=== PATIENT | female | born 1950 | race Caucasian/White ===

== ENCOUNTER 2019-03-20 17:55 | Observation (INO) | payer MEDICARE ==
[2019-03-20] MEDS ORDERED: diphenhydrAMINE 50 MG/ML VIAL ONE (19:28)
[2019-03-20] MEDS ORDERED: Metoclopramide HCl 10 MG/2 ML VIAL ONE (19:28)
[2019-03-20] MEDS ORDERED: methylPREDNISolone Sod Succ/PF 125 MG/2 ML VIAL ONE (19:28)
[2019-03-20] MEDS ORDERED: Ondansetron PF 4 MG/2 ML Vial IVP PRN (21:24)
[2019-03-20 21:36] VITALS: BMI 24.7
--- NOTE | 2019-03-20 22:36 | PDOC.FM ---
- Objective Vital Signs & Weight: Vital Signs (12 hours) Temp Pulse Resp BP Pulse Ox 03/20/19 20:36 98.3 F 80 20 188/84 H 99 Weight Weight 71.804 kg Addendum - Attending - Attending Attestation Date/Time: 03/20/19 7433 I personally evaluated the patient and discussed the management with Dr. Edwards and Dr Herrera. Written H&P is pending. I agree with the History, Examination, Assessment and Plan documented as discussed with any addition or exceptions noted below.
[2019-03-20] MEDS: Sodium Chloride 0.9% 1,000 ML IV SCH (22:41)
[2019-03-20] MEDS: Famotidine 20 MG TAB PO SCH (22:42)
--- NOTE | 2019-03-20 22:49 | PDOC.FPRHP ---
- History of Present Illness Chief Complaint: vertigo History of Present Illness: Patient is a 68F with PMHx asthma, hypothyroidism, HTN, and arachnoiditis on stroke obs for r/o posterior CVA. Patient reports that Wednesday morning she began having vertigo and a posterior headache. She reports that the vertigo is worse when she is walking or riding in a vehicle. She states that she is sensitive to both light and sounds and has felt unsteady on her feet. She reports having diarrhea this morning, and when she was sitting on the toilet she had an episode of syncope witnessed by her cousin. Cousin reports she lost consciousness for approx 2 minutes. She reports that she is followed by Dr. Jace Zamudio Jr at the [facility] for arachnoiditis. ED Course: [facility] ED: ASA, nitro, lopressor, CT head: no evidence of intracranial bleeding or mass effect, EKG wnl, WBC 15.5 [facility] ED: Benadryl, methylprednisone, metoclopramide - Allergies/Adverse Reactions Allergies Allergy/AdvReac Type Severity Reaction Status Date / Time acetaminophen [From Lortab] Allergy Verified 03/20/19 21:29 ciprofloxacin Allergy Verified 03/20/19 21:29 gabapentin [From Neurontin] Allergy Verified 03/20/19 21:29 hydrocodone Allergy Verified 03/20/19 21:29 morphine Allergy Verified 03/20/19 21:29 - Home Medications Medication Instructions Recorded Confirmed Type Albuterol Sulfate [Proair HFA] 2 puff INH Q4HR PRN 03/20/19 03/20/19 History Meclizine HCl 1 tab PO Q8HR 03/20/19 03/20/19 History Meloxicam [Mobic] 7.5 mg PO BID 03/20/19 03/20/19 History Ondansetron [Zofran ODT] 1 tab SL Q4HR PRN 03/20/19 03/20/19 History Verapamil ER [Calan ER] 1 tab PO BID 03/20/19 03/20/19 History predniSONE 1 tab PO BID PRN 03/20/19 03/20/19 History traMADol HCl [Tramadol HCl] 1 tab PO Q4HR PRN 03/20/19 03/20/19 History - History PMHx:see hpi PSHx: multiple neck and back sx, appendectomy, hysterectomy, cholecystectomy FHx: non-contributory Social: no drinking, smoking, drug use - Review of Systems General: denies: fever/chills, weight/appetite/sleep changes Eyes: denies: eye pain ENT: denies: nasal congestion, rhinorrhea Respiratory: denies: congestion, shortness of breath Cardiovascular: denies: chest pain, edema Gastrointestinal: reports: diarrhea. denies: abdominal pain Genitourinary: denies: incontinence, dysuria Skin: denies: rashes, jaundice Neurological: reports: syncope, other (posterior headache, photophobia, phonophobia). denies: numbness, seizure, weakness - Vital signs BP: [149/89] HR: [79] RR: [13] Tmax: [98.9] Pox: [98]% on [RA] Wt: [71.8kg] - Physical Exam Constitutional: other (curled up on the bed in the dark complaining of headache) HEENT: EOMI Neck: supple, trachea midline Chest: no-tender to palpation, no lesions Heart: RRR, normal S1/S2 Lungs: no respiratory distress, good air movement Abdomen: soft, non-tender Musculoskeletal: normal structure, normal tone Neurological: CN II-XII intact, normal sensation, other (horizontal right- beating nystagmus) Skin: good turgor, no jaundice Heme/Lymphatic: no purpura, no petechia Psychiatric: intact recent and remote memory, other (in obvious pain) FMR H&P: Results - Labs Result Diagrams: 03/21/19 04:24 03/21/19 04:24 FMR H&P: A/P - Problem List (1) Vertigo Current Visit: Yes Status: Acute Code(s): R42 - DIZZINESS AND GIDDINESS (2) Headache Current Visit: Yes Status: Acute Code(s): R51 - HEADACHE (3) Hypothyroid Current Visit: Yes Status: Acute Code(s): E03.9 - HYPOTHYROIDISM, UNSPECIFIED (4) Asthma Current Visit: Yes Status: Acute Code(s): J45.909 - UNSPECIFIED ASTHMA, UNCOMPLICATED (5) HTN (hypertension) Current Visit: Yes Status: Acute Code(s): I10 - ESSENTIAL (PRIMARY) HYPERTENSION - Plan 68F with PMHx of asthma, hypothyroidism, HTN, arachnoiditis on stroke obs for CVA r/o #Vertigo & Headache likely 2/2 migraine -patient has phonophobia and photophobia -posterior headache for three days -received benadryl, methylprednisone, metoclopramide in ED -MRI brain w wo contrast ordered to r/o posterior CVA -metoclopramide and benadryl for headache management -will consider triptan for migraine if CVA r/o and HTN controlled #Hypothyroidism -continue home meds #HTN -allowing for permissive HTN until CVA r/o -labetalol for SBP >180 #Asthma -continue home meds #Arachnoiditis -continue home meds DVT proph: lovenox GI proph: pepcid Code Status: full code Dispo: stroke obs for CVA r/o FMR H&P: Upper Level - Plan Date/Time: 03/20/19 4572 I, Christo Herrera MD, have evaluated this patient and agree with findings/plan as outlined by project intern resident. Pertinent changes/additions are listed here. Ambreen Ring is a 68 year old F with a PMH of Asthma, Hypothyroidism, HTN who was transferred from [place] ER with c/o of headache, dizziness and n/v over the last 3 days [employer]. Patient states that headache is located at the back of her head, described as dull, rated as 10/10, constant, worsened by movement. Dizziness described as room is spinning. Pt was diagnosed earlier in the year with arachnoiditis. States that she has never had headaches or dizziness like this and denies any history of migraines. At [place] [facility], she had a WBC count of 15.[address] that showed no evidence of intracranial bleeding or mass effect. On exam, patient had nystagmus with right gaze, no vertical nystagmus. Cerebellar tests were normal including finger to nose, rapid alternating movements, rebound phenomenon, and heel to schumacher. Patient is being placed on stroke unit for observation. Brain MRI ordered and will symptomatically treat headache and vertigo. Patient states she has already had improvement in both with treatment from ED, including 1 L NS, benadryl, methylprednisolone, and metoclopramide. Will continue to monitor patient's neurologic status. Please see project intern note above for full H&P, which I have reviewed and agree with unless otherwise stated. Addendum - Attending - Attending Attestation Date/Time: 03/21/19 4249 I personally evaluated the patient and discussed the management with Dr. Herrera and Jerry at time of admission last night. I agree with the History, Examination, Assessment and Plan documented above with any addition or exceptions noted below. Ambreen has vertigo with right gaze nystagmus but no sensory or motor deficits. Cerebellar tests are intact bilaterally. The clinical picture could be best explained by a complex migraine, but she does not have a migraine/Fong history so it concerning for a 68yo to have a new FONG. MRI planned.
[2019-03-20] MEDS ORDERED: Metoclopramide HCl 10 MG/2 ML VIAL IVP SCH (23:00)
[2019-03-20] MEDS ORDERED: diphenhydrAMINE 25 MG in Sodium Chloride 0.9% 50 ML IVPB SCH (23:30)
[2019-03-21] MEDS ORDERED: Lorazepam 1 MG TAB PO PRN (03:18)
[2019-03-21] MEDS ORDERED: PROVENTIL INHALER 6.7 G (200 INHALATIONS) INH PRN (04:34)
[2019-03-21 04:45] LABS: #Lymphocytes 1.1 thou/uL (1.20-3.40); #Neutrophils 9.2 thou/uL (1.40-6.50); %Basophils 0.1 % (0.0-1.0); %Eosinophils 0.2 % (0.0-10.0); %Lymphocytes 10.7 % (21.0-51.0); %Monocytes 0.4 % (0.0-10.0); %Neutrophils 88.7 % (42.0-75.0); Hemoglobin 16.1 g/dL (12.0-16.0); Mean Corpuscular HGB CONC 34.3 g/dL (32.0-36.0); Mean Corpuscular Hemoglobin 30.4 pg (27.0-31.0); Mean Corpuscular Volume 88.8 fL (78.0-98.0); Mean Platelet Volume 8.4 fL (7.4-10.4); Platelet Count 248 thou/uL (130-400); Red Blood Cell (RBC) Count 5.29 mill/uL (4.20-5.40); White Blood Cell (WBC) Count 10.4 thou/uL (4.8-10.8)
[2019-03-21] MEDS ORDERED: predniSONE 5 MG TAB PO PRN (04:45)
[2019-03-21 05:03] LABS: Anion Gap 17 mmol/L (10-20); BUN (Urea Nitrogen) 17 mg/dL (9.8-20.1); Calc. Creatinine Clearance 86 mL/min (70-130); Calcium 9.3 mg/dL (7.8-10.44); Carbon Dioxide 17 mmol/L (23-31); Chloride 105 mmol/L (98-107); Estimated GFR-MDRD 83; Glucose 141 mg/dL (80-115); Potassium 3.4 mmol/L (3.5-5.1); Sodium 136 mmol/L (136-145)
[2019-03-21] MEDS: Acetaminophen 325 MG TAB PO PRN ×2 (05:58→20:46)
--- NOTE | 2019-03-21 08:05 | PDOC.FM ---
- Subjective Subjective: Patient reports her headache improved overnight, and has now returned. Describes a "splitting headache," and states "My head feels like its going to explode." States the lights and sound bother her, feels nauseated and that the room is spinning. Complains of substernal chest pressure that started when I came to see her this AM, while laying in bed. - Objective Vital Signs & Weight: Vital Signs (12 hours) Temp Pulse Resp BP Pulse Ox 03/21/19 04:00 98 F 107 H 18 147/72 H 95 03/21/19 00:00 98.1 F 97 16 190/87 H 94 L 03/20/19 20:36 98.3 F 80 20 188/84 H 99 Weight Weight 71.804 kg I&O: 03/20/19 03/21/19 03/22/19 06:59 06:59 06:59 Intake Total 2 Balance 2 Result Diagrams: 03/21/19 04:24 03/21/19 04:24 Phys Exam - Physical Examination Moaning, appears to be in pain HEENT: PERRLA, sclera anicteric Respiratory: no wheezing, clear to auscultation bilateral Cardiovascular: RRR, no significant murmur Gastrointestinal: soft, non-tender, positive bowel sounds Musculoskeletal: no edema, pulses present Neurological: non-focal, moves all 4 limbs Skin: normal turgor, cap refill <2 seconds Dx/Plan (1) Asthma Code(s): J45.909 - UNSPECIFIED ASTHMA, UNCOMPLICATED Status: Chronic (2) HTN (hypertension) Code(s): I10 - ESSENTIAL (PRIMARY) HYPERTENSION Status: Chronic (3) Headache Code(s): R51 - HEADACHE Status: Acute (4) Hypothyroid Code(s): E03.9 - HYPOTHYROIDISM, UNSPECIFIED Status: Chronic (5) Vertigo Code(s): R42 - DIZZINESS AND GIDDINESS Status: Acute - Plan Plan: 68F with PMHx of asthma, hypothyroidism, HTN, admitted for CVA r/o #Vertigo & Headache likely 2/2 migraine, concern for CVA -posterior headache for three days, with phonophobia and photophobia and nausea/ vomiting -CT head negative in [place] -received benadryl, methylprednisone, metoclopramide in ED -MRI brain w wo contrast ordered to r/o posterior CVA -metoclopramide and benadryl for headache management -Consider LP today to rule out IVH #Hypothyroidism -continue home meds #HTN -allowing for permissive HTN until CVA r/o -labetalol for SBP >220/120 #Asthma -continue home meds #Arachnoiditis -aware #Atypical chest pain -substernal chest pressure -May be 2/2 anxiety/headache -EKG, trop and CKMB this AM DVT proph: held for now GI proph: pepcid Code Status: full code Dispo: stroke obs for CVA r/o Addendum - Attending - Attending Attestation Date/Time: 03/21/19 1138 I personally evaluated the patient and discussed the management with Dr. Noble. I agree with the History, Examination, Assessment and Plan documented above with any addition or exceptions noted below. Pt notes headache is a little better this am. MRI of brain is negative for stroke, mass, hemorrhage, etc. Will have PT eval pt with her dizziness. Will try addition meds on headache protocol to control headache. Trop indeterminate , will trend.
[2019-03-21] MEDS ORDERED: Labetalol HCl 100 MG/20 ML VIAL SLOW IVP PRN (08:22)
[2019-03-21] MEDS ORDERED: Enoxaparin Sodium 40 MG/0.4 ML SYRINGE SC SCH (09:00)
[2019-03-21] MEDS ORDERED: Meloxicam 7.5 MG TAB PO SCH (09:00)
[2019-03-21 09:33] LABS: Cardiac Risk 2.9 (Less than 4.5)
[2019-03-21 09:38] LABS: CKMB 1.7 ng/mL (0-6.6); Troponin I 0.043 ng/mL (< 0.028)
--- NOTE | 2019-03-21 10:11 | MRI ---
MRI BRAIN WITH AND WITHOUT IV CONTRAST: HISTORY: Posterior CVA COMPARISON: None CORRELATION:03/20/2019 FINDINGS: No restricted diffusion is seen. No evidence of infarct, hemorrhage, mass, midline shift or abnormal extra-axial fluid collections is noted. No abnormal postcontrast enhancement is seen. The ventricular size is appropriate and the basilar cisterns are patent. There is mucosal disease in the paranasal sinuses. IMPRESSION: No evidence of acute intracranial process or mass.
[2019-03-21] MEDS: Famotidine 20 MG TAB PO SCH ×2 (11:12→20:46)
[2019-03-21 13:37] LABS: Troponin I 0.103 ng/mL (< 0.028)
--- NOTE | 2019-03-21 14:10 | CT ---
EXAM: CT angiogram great vessels neck with IV contrast and three-dimensional reconstructions CT angiogram brain with IV contrast and three-dimensional reconstructions CT brain without contrast PROVIDED CLINICAL HISTORY: TIA COMPARISON: CT brain 03/20/2019 FINDINGS: The ventricular system remains normal in size and morphology. There is no evidence for intracranial h emorrhage or mass effect. The extracranial soft tissues and osseous structures demonstrate an unremarkable CT appearance. There is a normal three-vessel configuration of the great vessels at the arch. The common carotid, internal carotid, clavian and vertebral arteries demonstrate no evidence for sign ificant stenosis. There is no evidence for focal vessel stenosis, branch occlusion or aneurysm involving the intracrani al circulation. IMPRESSION: 1. No evidence for intracranial hemorrhage or mass effect. 2. No significant stenosis involving the great vessels of the neck. 3. No evidence for focal vessel stenosis, branch occlusion or aneurysm involving the intracranial cir culation.
[2019-03-21] MEDS ORDERED: Iopamidol 370 76% 100 ML VIAL ONE (15:11)
--- NOTE | 2019-03-21 15:14 | PDOC.EVN ---
Event Note - Event Note Event Note: Went to check on Patient. Patient reports her headache and chest pain are resolved. Reviewed EKG. Sinus tach with nonspecific ST abnormality. Will trend one more troponin, as they have been uptrending. Cdif negative.
[2019-03-21 15:36] LABS: Troponin I 0.094 ng/mL (< 0.028)
[2019-03-21] MEDS ORDERED: traMADol HCl 50 MG TAB PO PRN (16:53)
[2019-03-21] MEDS: Sodium Chloride 0.9% 1,000 ML IV SCH ×2 (19:45→20:05)
[2019-03-21] MEDS: Meclizine HCl 25 MG TAB PO SCH (20:46)
--- NOTE | 2019-03-21 23:00 | EKG ---
Test Reason : Blood Pressure : / mmHG Vent. Rate : 106 BPM Atrial Rate : 106 BPM P-R Int : 148 ms QRS Dur : 082 ms QT Int : 340 ms P-R-T Axes : 070 -02 075 degrees QTc Int : 451 ms Sinus tachycardia Right atrial enlargement Nonspecific ST abnormality Abnormal ECG When compared with ECG of 20-MAR-2019 18:13, (Unconfirmed) Nonspecific T wave abnormality no longer evident in Anterior leads Confirmed by Chung MCKENZIE ([id number]) on 03/21/2019 11:00:01 PM Referred By: Gloria NUNEZ *R Confirmed By:Chung MCKENZIE
[2019-03-22] MEDS: Levothyroxine Sodium 125 MCG TAB PO SCH ×2 (07:20→08:28)
[2019-03-22] MEDS: Meclizine HCl 25 MG TAB PO SCH ×3 (07:20→14:01)
[2019-03-22] MEDS: Famotidine 20 MG TAB PO SCH (08:30)
--- NOTE | 2019-03-22 08:35 | PDOC.FM ---
- Subjective Subjective: Patient reports she feels well this AM. NAEO. - Objective Vital Signs & Weight: Vital Signs (12 hours) Temp Pulse Resp BP Pulse Ox 03/22/19 08:00 98.3 F 71 16 170/76 H 96 03/22/19 04:00 98.4 F 74 19 177/81 H 95 03/22/19 00:00 98.7 F 78 18 156/69 H 95 Weight Weight 71.804 kg I&O: 03/21/19 03/22/19 03/23/19 06:59 06:59 06:59 Intake Total 2 940 Output Total 2 Balance 2 938 Result Diagrams: 03/21/19 04:24 03/21/19 04:24 Phys Exam - Physical Examination Constitutional: NAD Respiratory: no wheezing, clear to auscultation bilateral Cardiovascular: RRR, no significant murmur Gastrointestinal: soft, positive bowel sounds Musculoskeletal: no edema, pulses present Psychiatric: normal affect Skin: no rash, normal turgor Dx/Plan (1) Asthma Code(s): J45.909 - UNSPECIFIED ASTHMA, UNCOMPLICATED Status: Chronic (2) HTN (hypertension) Code(s): I10 - ESSENTIAL (PRIMARY) HYPERTENSION Status: Chronic (3) Headache Code(s): R51 - HEADACHE Status: Acute (4) Hypothyroid Code(s): E03.9 - HYPOTHYROIDISM, UNSPECIFIED Status: Chronic (5) Vertigo Code(s): R42 - DIZZINESS AND GIDDINESS Status: Acute (6) Atypical chest pain Code(s): R07.89 - OTHER CHEST PAIN Status: Acute - Plan Plan: 68F with PMHx of asthma, hypothyroidism, HTN, admitted for CVA r/o #Atypical chest pain -substernal chest pressure -May be 2/2 anxiety/headache -EKG showed slight ST depression in lateral leads -Trop: 0.043 -> 0.103 -> 0.90. Chest pain resolved -Heart score 5 -Stress this AM #R/O CVA -Stroke ruled out. Likely severe migraine vs TIA as symptoms have improved -posterior headache for three days, with phonophobia and photophobia and nausea/ vomiting -CT head negative in [place] -received benadryl, methylprednisone, metoclopramide in ED -MRI brain w wo contrast negative -CTA head/neck negative -discharge to home today if normal stress test #Benign paroxysmal positional vertigo -Lulu Hallpike maneuver 03/21 elicits nystagmus bilaterally -vertigo worsens with movement #Hypothyroidism -continue home meds #HTN -resume home medications #Asthma -continue home meds #Arachnoiditis -resume home medications DVT proph: lovenox GI proph: pepcid Code Status: full code Dispo: likely home today if normal stress test Addendum - Attending - Attending Attestation Date/Time: 03/22/19 1031 I personally evaluated the patient and discussed the management with Dr. Noble. I agree with the History, Examination, Assessment and Plan documented above with any addition or exceptions noted below. The patient is very anxious this morning. She is only saying "leave me alone, I don't want to be here." She had elevated cardiac enzymes yesterday with chest pain. Chest pain resolved. Will get stress test today if patient agrees to the test. She has been given a dose of hydroxyzine this morning for the anxiety. Will reassess about 30 minutes after the medication.
[2019-03-22] MEDS ORDERED: Enoxaparin Sodium 40 MG/0.4 ML SYRINGE SC SCH (09:00)
[2019-03-22] MEDS: Sodium Chloride 0.9% 1,000 ML IV SCH (09:01)
[2019-03-22] MEDS ORDERED: hydrOXYzine 25 MG TAB PO SCH (10:00)
[2019-03-22] MEDS ORDERED: hydrALAZINE 10 MG TAB PO SCH (10:00)
[2019-03-22] MEDS ORDERED: Regadenoson 0.4 MG/5 ML SYRINGE ONE (13:55)
[2019-03-22 15:48] VITALS: BP 178/79; TEMP 98.7
--- NOTE | 2019-03-22 16:08 | NM ---
CARDIAC SPECT: 03/22/19 HISTORY: 68-year-old female with elevated troponin, hypertension, stroke, asthma. TECHNIQUE: A myocardial perfusion scan is performed using the single isotope one day protocol of technetium 99m- Sestamibi. 11 millicuries injected intravenously for rest followed by 31 millicuries for the stress s tudy. Pharmacologic test with Lexiscan was monitored and interpreted by TERRA Renee. FINDINGS: Homogeneous tracer distribution seen in the myocardial segments on stress and rest images Without fix ed or reversible defects. Gated SPECT LVEF: 73%. Wall motion exam: Normal. IMPRESSION: Normal myocardial perfusion scan. POS: TPC
--- NOTE | 2019-03-23 13:10 | CT ---
"PRELIMINARY REPORT" EXAM: CT angiogram great vessels neck with IV contrast and three-dimensional reconstructions CT angiogram brain with IV contrast and three-dimensional reconstructions CT brain without contrast PROVIDED CLINICAL HISTORY: TIA COMPARISON: CT brain 03/20/2019 FINDINGS: The ventricular system remains normal in size and morphology. There is no evidence for intracranial h emorrhage or mass effect. The extracranial soft tissues and osseous structures demonstrate an unremarkable CT appearance. There is a normal three-vessel configuration of the great vessels at the arch. The common carotid, internal carotid, clavian and vertebral arteries demonstrate no evidence for sign ificant stenosis. There is no evidence for focal vessel stenosis, branch occlusion or aneurysm involving the intracrani al circulation. IMPRESSION: 1. No evidence for intracranial hemorrhage or mass effect. 2. No significant stenosis involving the great vessels of the neck. 3. No evidence for focal vessel stenosis, branch occlusion or aneurysm involving the intracranial cir culation. Transcribed Date/Time: 03/23/2019 1:10 PM
--- NOTE | 2019-03-23 13:59 | DIS ---
DATE OF ADMISSION: 03/20/2019 DATE OF DISCHARGE: 03/22/2019 RESIDENT: María Noble MD ADMITTING ATTENDING: Jesús Lama MD DISCHARGE ATTENDING: Johanne Garcia MD CONSULTS: None. PROCEDURES PERFORMED: 1. Brain MRI, 03/21/2019. Impression, no evidence of acute intracranial process or mass. 2. CT angiography head and neck, 03/21/2019. No evidence for intracranial hemorrhage or mass effect. No significant stenosis involving great vessel of the neck. No evidence for focal vessel stenosis, branch occlusion, or aneurysm involving the intracranial circulation. 3. Stress test nuclear medicine, 03/22/2019. LVEF 72%. Normal wall motion. Impression, normal myocardial perfusion scan. PRIMARY DIAGNOSES: 1. Complex migraine, ruled out cerebrovascular accident. 2. Atypical chest pain. 3. Benign paroxysmal positional vertigo. SECONDARY DIAGNOSES: 1. Hypothyroidism. 2. Hypertension. 3. Asthma. 4. Arachnoiditis. DISCHARGE MEDICATIONS: 1. Prednisone 10 mg p.o. b.i.d. 2. Meclizine 1 tablet p.o. q.8 hours. 3. Albuterol sulfate two puffs q.4 hours p.r.n. for wheezing. 4. Tramadol 1 tablet p.o. b.i.d. 5. Zofran 1 tab sublingual q.4 hours p.r.n. for nausea. 6. Mobic 7.5 mg p.o. b.i.d. 7. Verapamil 180 mg tabs, two tabs p.o. daily. 8. Levothyroxine 100 mcg p.o. daily. 9. Flexeril 10 mg p.o. b.i.d. as needed for muscle pain. 10. Singulair 10 mg p.o. daily. DISCONTINUED MEDICATIONS: None. HISTORY OF PRESENT ILLNESS/HOSPITAL COURSE: A 68-year-old female with past medical history of asthma, hypothyroidism, hypertension, and reported arachnoiditis. Reports that she had began having vertigo and posterior headache two days prior to admission. She reported the vertigo was worse when she was riding in a vehicle. She reported sensitivity to light and sound, and has felt unsteady on her feet. She also reported having diarrhea and an episode of syncope that was witnessed by her cousin while in the toilet. She reports that she sees Dr. Jace Zamudio at the [place]. In [place], the patient was given aspirin, nitroglycerin, Lopressor. A CT of the head showed no evidence of intracranial bleeding or mass effect. EKG was within normal limits when she had elevated white count at 15.5. In the [place] ER, she was given Benadryl, methylprednisolone, and metoclopramide. The patient received CT head and MRI of brain with and without contrast, as well as CTA angio of head and neck that was negative for stroke. Her symptoms improved overnight and then worsened somewhat the next morning and she began complaining of substernal chest pressure. Troponins were trended which increased slightly in the indeterminate range and then downtrended. Values were 0.043 to 0.103 to 0.094. Repeat EKG showed some possible slight ST depression in the lateral leads. Her chest pain resolved as well as the headache. She had a HEART score of 5; the next morning she underwent a nuclear medicine stress test that was normal. Yasmine-Hallpike maneuver was done, which elicited nystagmus bilaterally. The patient reported that her vertigo worsens with movement. She was diagnosed with BPPV. The patient was discharged with meclizine. For hypothyroidism, hypertension, asthma and arachnoiditis, the patient was encouraged to continue her home medications. DISPOSITION: Stable. DISCHARGE INSTRUCTIONS: 1. Location: Home. 2. Diet: Heart healthy. 3. Activity: As tolerated. 4. Follow up with PCP within 1 week. Job ID: [id number] MTDD
--- NOTE | 2019-03-25 12:47 | EKG ---
Test Reason : R/O CVA Blood Pressure : / mmHG Vent. Rate : 074 BPM Atrial Rate : 074 BPM P-R Int : 158 ms QRS Dur : 086 ms QT Int : 376 ms P-R-T Axes : 063 018 075 degrees QTc Int : 417 ms Normal sinus rhythm Possible Left atrial enlargement Borderline ECG Confirmed by PALMA REDDING, BHUPENDRA ([id number]), slot editor TRISTIAN CARLSON ([id number]) on 03/25/2019 12:46:10 PM Referred By: Confirmed By:BHUPENDRA WALDROP MD
== END 2019-03-22 17:35 | disposition home or self-care (01) ==
LOC: ERS 17:55 → 2SE 21:00
PROVIDERS: ADMIT Family Medicine; ATTEND Family Medicine
DX: G43.809 Other migraine, not intractable, without status migrainosus (principal); R07.2 Precordial pain; H81.10 Benign paroxysmal vertigo, unspecified ear; J45.909 Unspecified asthma, uncomplicated; G03.9 Meningitis, unspecified; E03.9 Hypothyroidism, unspecified; I10 Essential (primary) hypertension; R00.0 Tachycardia, unspecified; Z88.1 Allergy status to other antibiotic agents; Z88.5 Allergy status to narcotic agent; Z88.8 Allergy status to other drugs, medicaments and biological substances; Z79.899 Other long term (current) drug therapy
CPT/HCPCS: 70496; 70498; 70553; 78452; 80048; 80061; 82553; 84443; 84484 ×2; 85025; 87324; 87449; 87493; 93005 ×2; 93017; 96361 ×2; 96365; 96366; 96372; 96375; 96376; 97116; 97139 ×5; 99285; A9500; G0378 ×5; 36415; 93010; J1200; J1650; J2765; J2785; J2930; J8597

== ENCOUNTER 2020-11-28 09:17 | Inpatient (IN) | payer MEDICARE ==
[2020-11-28] MEDS ORDERED: Aspirin Chewable 81 MG TAB ONE (11:34)
[2020-11-28] MEDS ORDERED: Senokot S 8.6-50 MG TAB PO PRN (12:37)
[2020-11-28] MEDS ORDERED: HumaLOG 300 UNITS/3 ML VIAL SC PRN (12:37)
[2020-11-28] MEDS ORDERED: Dextrose 50% Abboject 50 ML SYRINGE SLOW IVP PRN (12:37)
[2020-11-28] MEDS ORDERED: Bisacodyl 10 MG SUPP PR PRN (12:37)
[2020-11-28] MEDS ORDERED: Guaifenesin DM 100-10/5 ML UDCUP PO PRN (12:37)
[2020-11-28] MEDS ORDERED: Cyclobenzaprine 10 MG TAB PO PRN (12:37)
[2020-11-28] MEDS ORDERED: Insulin Regular 300 UNITS/3 ML VIAL SC PRN (12:37)
[2020-11-28] MEDS ORDERED: Calcium Carbonate 500 MG ChewTAB PO PRN (12:37)
[2020-11-28] MEDS ORDERED: Dextrose 5% in Water 1,000 ML IV PRN (12:37)
[2020-11-28] MEDS ORDERED: predniSONE 20 MG TAB PO SCH (12:45)
[2020-11-28] MEDS ORDERED: Sodium Chloride 0.9% 1,000 ML IV SCH (12:45)
[2020-11-28] MEDS: traMADol HCl 50 MG TAB PO PRN (18:47)
[2020-11-28] MEDS: Ondansetron PF 4 MG/2 ML Vial IVP PRN (18:48)
[2020-11-28 19:07] VITALS: BMI 28.7
[2020-11-28] MEDS: Montelukast Sodium 10 mg Tablet PO SCH (21:54)
[2020-11-28 21:59] LABS: SARS-CoV-2 PCR by NAA Not Detected (NotDetected)
[2020-11-29] MEDS: traMADol HCl 50 MG TAB PO PRN ×2 (04:36→17:57)
[2020-11-29] MEDS: Ondansetron PF 4 MG/2 ML Vial IVP PRN ×2 (04:41→17:56)
[2020-11-29 05:22] LABS: #Basophils 0.1 thou/uL (0.0-0.2); #Lymphocytes 1.5 thou/uL (1.20-3.40); #Monocytes 0.4 thou/uL (0.11-0.59); #Neutrophils 7.1 thou/uL (1.40-6.50); %Basophils 0.8 % (0.0-1.0); %Eosinophils 0.3 % (0.0-10.0); %Monocytes 4.5 % (0.0-10.0); %Neutrophils 78.5 % (42.0-75.0); Hemoglobin 13.5 g/dL (12.0-16.0); Mean Corpuscular Hemoglobin 29.7 pg (27.0-31.0); Mean Corpuscular Volume 90.2 fL (78.0-98.0); Mean Platelet Volume 8.4 fL (7.4-10.4); Platelet Count 244 thou/uL (130-400); RBC Distribution Width 12.5 % (11.5-14.5); Red Blood Cell (RBC) Count 4.55 mill/uL (4.20-5.40); White Blood Cell (WBC) Count 9.1 thou/uL (4.8-10.8)
[2020-11-29] MEDS: Levothyroxine Sodium 125 MCG TAB PO SCH (05:46)
[2020-11-29 05:49] LABS: ALT (SGPT) 13 U/L (8-55); AST (SGOT) 15 U/L (5-34); Albumin 3.4 g/dL (3.4-4.8); Alkaline Phosphatase 43 U/L (40-110); Anion Gap 13 mmol/L (10-20); BUN (Urea Nitrogen) 8 mg/dL (9.8-20.1); Bilirubin, Total 1.4 mg/dL (0.2-1.2); Calc. Creatinine Clearance 90 mL/min (70-130); Calcium 9.1 mg/dL (7.8-10.44); Carbon Dioxide 20 mmol/L (23-31); Chloride 104 mmol/L (98-107); Globulin 2.7 g/dL (2.4-3.5); Glucose 143 mg/dL (83-110); Potassium 3.7 mmol/L (3.5-5.1); Protein, Total 6.1 g/dL (5.8-8.1); Sodium 133 mmol/L (136-145)
[2020-11-29] MEDS: Enoxaparin Sodium 40 MG/0.4 ML SYRINGE SC SCH (09:07)
[2020-11-29] MEDS: predniSONE 20 MG TAB PO SCH (09:07)
[2020-11-29] MEDS ORDERED: hydrALAZINE 20 MG/ML VIAL SLOW IVP PRN (13:20)
[2020-11-29] MEDS ORDERED: GoLYTELY 4,000 ml Bottle PO SCH (17:00)
[2020-11-29] MEDS: Montelukast Sodium 10 mg Tablet PO SCH (21:10)
[2020-11-29] MEDS: Pantoprazole 40 MG VIAL IVP SCH (21:10)
[2020-11-30] MEDS: traMADol HCl 50 MG TAB PO PRN (01:55)
[2020-11-30 05:56] LABS: ALT (SGPT) 12 U/L (8-55); AST (SGOT) 16 U/L (5-34); Albumin 3.4 g/dL (3.4-4.8); Alkaline Phosphatase 43 U/L (40-110); Anion Gap 13 mmol/L (10-20); BUN (Urea Nitrogen) 7 mg/dL (9.8-20.1); Bilirubin, Total 1.8 mg/dL (0.2-1.2); Calc. Creatinine Clearance 90 mL/min (70-130); Calcium 8.8 mg/dL (7.8-10.44); Carbon Dioxide 26 mmol/L (23-31); Chloride 102 mmol/L (98-107); Globulin 2.6 g/dL (2.4-3.5); Glucose 84 mg/dL (83-110); Lipase 35 U/L (8-78); Potassium 3.1 mmol/L (3.5-5.1); Sodium 138 mmol/L (136-145)
[2020-11-30] MEDS: Levothyroxine Sodium 125 MCG TAB PO SCH (06:28)
[2020-11-30] MEDS ORDERED: Potassium Chloride 20 MEQ in Premix Bag 1 BAG IVPB SCH (07:00)
[2020-11-30] MEDS: predniSONE 20 MG TAB PO SCH (08:31)
[2020-11-30] MEDS: Pantoprazole 40 MG VIAL IVP SCH (08:32)
[2020-11-30] MEDS ORDERED: Fentanyl 100 MCG/2 ML VIAL ONE (11:22)
[2020-11-30] MEDS: Enoxaparin Sodium 40 MG/0.4 ML SYRINGE SC SCH (11:22)
[2020-11-30] MEDS ORDERED: Ondansetron PF 4 MG/2 ML Vial ONE (11:31)
[2020-11-30] MEDS ORDERED: PROPOFOL 200 MG/20 ML VIAL ONE (11:31)
[2020-11-30] MEDS ORDERED: Promethazine HCl 25 MG/ML VIAL SLOW IVP PRN (11:53)
[2020-11-30] MEDS ORDERED: Promethazine HCl 25 MG/ML VIAL IM PRN (11:53)
[2020-11-30] MEDS ORDERED: Dicyclomine 10 MG CAP PO SCH (15:00)
[2020-11-30 16:03] VITALS: BP 146/67; TEMP 98.1
[2020-12-17 07:16] LABS: Fungus Culture Final report (.); Fungus Culture Result 1 Penicillium species (.)
== END 2020-11-30 19:00 | disposition home or self-care (01) | DRG 392 ==
LOC: ERS 09:17 → ERHOLD 11:14 → 2SE 15:38 → OBSVTOIN 11-29 10:53
PROVIDERS: ADMIT Internal Medicine; ATTEND Internal Medicine
PROC: 0DJ08ZZ Inspection of Upper Intestinal Tract, Via Natural or Artificial Opening Endoscopic (ICD-10-PCS; principal; 2020-11-30)
PROC: 0DBK8ZZ Excision of Ascending Colon, Via Natural or Artificial Opening Endoscopic (ICD-10-PCS; 2020-11-30)
DX: R19.7 Diarrhea, unspecified (principal); G03.1 Chronic meningitis; K57.30 Diverticulosis of large intestine without perforation or abscess without bleeding; Z20.822 Contact with and (suspected) exposure to COVID-19; D12.2 Benign neoplasm of ascending colon; K64.4 Residual hemorrhoidal skin tags; K64.8 Other hemorrhoids; E66.9 Obesity, unspecified; E74.39 Other disorders of intestinal carbohydrate absorption; E03.9 Hypothyroidism, unspecified; Z96.612 Presence of left artificial shoulder joint; Z96.651 Presence of right artificial knee joint; I10 Essential (primary) hypertension; M19.90 Unspecified osteoarthritis, unspecified site; J45.20 Mild intermittent asthma, uncomplicated; J32.9 Chronic sinusitis, unspecified; Z90.49 Acquired absence of other specified parts of digestive tract; Z90.710 Acquired absence of both cervix and uterus; Z79.51 Long term (current) use of inhaled steroids; Z79.52 Long term (current) use of systemic steroids; Z79.890 Hormone replacement therapy; Z79.899 Other long term (current) drug therapy; Z88.1 Allergy status to other antibiotic agents; Z88.5 Allergy status to narcotic agent; Z88.8 Allergy status to other drugs, medicaments and biological substances; Z68.28 Body mass index [BMI] 28.0-28.9, adult
CPT/HCPCS: 36415; 36416; 80053; 83690; 85025; 87040; 87070; 87086; 87102; 87635; 88305; 94760; 96372; 96374; 96376; C9113; G0378; J0360; J1650; J2405; J2704; J3010; J3480; J7512; U0003; U0005